=== PATIENT | male | born 1945 | race African-American/Black ===

== ENCOUNTER 2016-11-15 18:29 | Observation (INO) | payer MEDICARE, BC ==
--- NOTE | ~2016-11-15 | EKG ---
PATIENT: KANDY HERMAN UNIT #: [id number] Ventricular Rate: 139 BPM Atrial Rate: 187 BPM QRS Duration: 100 ms Q-T Interval: 342 ms QTC Calculation(Bezet): 520 ms Calculated R [place]: -34 degrees Calculated T [place]: 84 degrees Diagnosis Line: Atrial fibrillation with rapid ventricular Diagnosis Line: response Diagnosis Line: Left axis deviation Diagnosis Line: Voltage criteria for left ventricular hypertrophy Diagnosis Line: Inferior infarct (cited on or before 15-FEB-2011) Diagnosis Line: Abnormal ECG Diagnosis Line: When compared with ECG of 27-JUN-2014 07:21, Diagnosis Line: Atrial fibrillation has replaced Sinus rhythm Diagnosis Line: Vent. rate has increased BY 60 BPM Diagnosis Line: T wave inversion now evident in Lateral leads Diagnosis Line: Confirmed by THEODORA TAO MD ([id number]) on 11/19/2016 Diagnosis Line: 10:39:38 PM INTERPRETING MD: DINH VELASQUEZ
--- NOTE | ~2016-11-15 | EKG ---
PATIENT: KANDY HERMAN UNIT #: [id number] Ventricular Rate: 84 BPM Atrial Rate: 84 BPM P-R Interval: 192 ms QRS Duration: 98 ms Q-T Interval: 420 ms QTC Calculation(Bezet): 496 ms P [place]: 80 degrees Calculated R [place]: -41 degrees Calculated T [place]: 77 degrees Diagnosis Line: Normal sinus rhythm Diagnosis Line: Left axis deviation Diagnosis Line: Voltage criteria for left ventricular hypertrophy Diagnosis Line: Inferior infarct (cited on or before 15-FEB-2011) Diagnosis Line: Abnormal ECG Diagnosis Line: When compared with ECG of 15-NOV-2016 16:27, Diagnosis Line: (unconfirmed) Diagnosis Line: Sinus rhythm has replaced Atrial fibrillation Diagnosis Line: Vent. rate has decreased BY 55 BPM Diagnosis Line: T wave inversion no longer evident in Lateral Diagnosis Line: leads Diagnosis Line: Confirmed by ISHAN ELISE MD ([id number]) on 11/18/2016 Diagnosis Line: 7:16:41 AM INTERPRETING MD: GOSIA VELASQUEZ
--- NOTE | ~2016-11-15 | CR72 ---
[facility] A Service of [facility] RADIOLOGY TEXT RESULTS PATIENT: KANDY HERMAN LOCATION: [facility] [id number] : 47 UNIT #: [id number] AGE: [address]: Ashli Geller MD SEX: M ORDER DR: [id number] [facility] [address] [place], [place] [address] [id number] MR#: [id number] Acc #: [id number] NAME: KANDY HERMAN : 1945 SEX: M STUDY DATE/TIME: 11/15/2016 16:55 UNIT: CED ROOM: [id number] STUDY DESCRIPTION: CR Chest Single View Portable Attending Physician: Ashli Geller M.D. Ordering Physician: Obey Morrison M.D. Primary Care Physician: No Primary Care Physician MEDICAL IMAGING REPORT This report is preliminary unless electronic signature is present EXAM Portable chest x-ray 11/15/2016 HISTORY Chest pain. Short of air, atrial fibrillation, palpitations. Began today. FINDINGS AP radiograph of the chest is presented. Comparison 06/26/2014 at 07:14 hours. Status post median sternotomy and CABG. Stable mild cardiac enlargement. The lungs are well inflated. Mild vascular prominence but the pulmonary vessels remain distinct. Findings may reflect mild underlying vascular congestion. No tan pulmonary edema. Minimal linear atelectasis or scarring at the extreme left lung base laterally. No dense airspace disease, pleural effusion or pneumothorax. No suspicious nodule. Healed granulomatous disease. Visualized upper abdomen shows no acute abnormality. Dictated by... Bay Ren M.D. THIS IS AN ELECTRONICALLY VERIFIED REPORT Bay Ren M.D. at 11/16/2016 8:06 PM TAMMI/tania TD: 11/15/2016 19:42 JOB #: [id number] MEDICAL IMAGING REPORT Page 1 of 1 COPY
--- NOTE | ~2016-11-15 | DS ---
Unit #: [id number] #: [id number] Patient: KANDY HERMAN [id number] [facility]. [place], [place] [address] [id number] MR#: [id number] NAME: KANDY HERMAN ROOM: [facility] Age: 71 Sex: M Admission Date: 11/15/2016 : 1945 Discharge Date: 11/16/2016 Attending Physician: Ashli Geller M.D. DISCHARGE SUMMARY HISTORY AND PHYSICAL/SHORT STAY SUMMARY HISTORY OF PRESENT ILLNESS This is a 71-year-old male previously known to Dr. Sellers with a past medical history of coronary artery disease, status post cardiac catheterization on June 17, 2014, with placement of a stent in the saphenous vein graft to the right coronary artery. The patient previously underwent coronary artery bypass grafting at [facility] after suffering an old myocardial infarction. A 2D echocardiogram was completed on June 15, 2014, which revealed severe LVH and moderate aortic valve calcification. There was impaired LV relaxation with an EF of 60%. Additional past medical history includes hypertension, hyperlipidemia, end-stage renal disease, on hemodialysis, history of cocaine, and noncompliance. Patient went to the hospital and received hemodialysis and did his treatment but then became dizzy. He had some pain in his left anterior chest that lasted up to an hour associated with palpitations. There was no radiation to the neck, jaw, shoulders, or arms. No associated symptoms of diaphoresis, but he was nauseated and slightly short of breath. He states that he was told that he had an irregular heartbeat years ago but was not started on an anticoagulant. In the emergency department, he was found to have new-onset atrial fibrillation with a rapid ventricular response. He was started on a diltiazem drip, and he converted to sinus rhythm. He was admitted overnight for further evaluation. Urine toxicology was positive for cocaine. The patient states that his last use was a couple of days ago. Additional labs revealed a hemoglobin of 10.5 with a hematocrit of 32.1. Creatinine was 3.9 with a BUN of 34. The patient is on hemodialysis three days a week and states that he has been compliant with his treatments. Cardiac enzymes were negative. BNP was mildly elevated at 515. Again, initial EKG revealed atrial fibrillation, but the patient has now converted to sinus rhythm. PAST MEDICAL HISTORY 1. Coronary artery disease, status post cardiac catheterization on June 17, 2014, that revealed distal left main 50%, left circumflex luminal irregularities, obtuse marginal 100%, mid LAD 99% with competitive flow with left internal mammary artery, right coronary artery 100%, saphenous vein graft to the PDA 30-40%, saphenous vein graft to the right coronary artery 70%, saphenous vein graft to the diagonal 40-50%, [place] to the LAD patent, and saphenous vein graft to the OM patent, status post PCI and VeriFlex bare-metal stent in the Unit #: [id number] #: [id number] Patient: KANDY HERMAN saphenous vein graft to the right coronary artery on June 18, 2014. 2. History of coronary artery bypass grafting at [facility] with an old myocardial infarction. 3. A 2D echocardiogram on June 15, 2014, revealed severe LVH, aortic valve moderately calcified, aortic valve bicuspid leaflet, impaired LV relaxation, and ejection fraction 60%. 4. Hypertension. 5. Hyperlipidemia. 6. End-stage renal disease, on hemodialysis. 7. Chronic anemia. 8. History of cocaine use. 9. Noncompliance. 10. History of reported cerebrovascular accident over 15 years ago. Records unavailable. No reported residual. PAST SURGICAL HISTORY 1. Cardiac catheterization. 2. Coronary artery bypass grafting. HOME MEDICATIONS 1. Trazodone 100 mg p.o. every evening. 2. Carvedilol 3.125 mg p.o. b.i.d. 3. Furosemide 40 mg p.o. b.i.d. 4. Atorvastatin 80 mg p.o. at bedtime. 5. Hydralazine 50 mg p.o. t.i.d. 6. Lisinopril 20 mg p.o. daily. 7. Metamucil 1 capsule p.o. daily. 8. Calcium acetate 667 mg p.o. t.i.d. 9. Imdur ER 30 mg p.o. daily. 10. Folic acid/vitamin B 1 tablet p.o. daily. ALLERGIES No known drug allergies. SOCIAL HISTORY The patient lives in a private residence. The patient continues to smoke a half pack of cigarettes per day. He admits to recent cocaine use a couple of days ago. There are no reports of alcohol or illicit drug use. FAMILY HISTORY Noncontributory. REVIEW OF SYSTEMS A 10-point review of systems is negative except for details noted above in the History of Present Illness. PHYSICAL EXAMINATION VITAL SIGNS: Temperature 98.3, pulse 91, and blood pressure 139/83. CONSTITUTIONAL: This is a 71-year-old male in no acute distress. SKIN: Warm and dry. NECK: Supple. No jugular vein distention. No hepatojugular reflux. Normal carotid upstrokes. No carotid bruits auscultated. HEART: S1 and S2. Regular rate and rhythm. No murmurs, rubs, or gallops. LUNGS: Bilateral breath sounds have good air entry throughout all lung augustine. Respirations even and nonlabored. No rales, rhonchi, or wheezes. ABDOMEN: Soft, nontender, and nondistended. Positive bowel sounds auscultated x4 quadrants. No ascites noted. Unit #: [id number] #: [id number] Patient: KANDY HERMAN EXTREMITIES: Bilateral lower extremities have no pretibial pitting edema. DP and PT pulses 2+. Capillary refill less than 3 seconds. DIAGNOSTIC STUDIES LABORATORY: White blood cell count 7, hemoglobin 10.5, hematocrit 32.1, and platelets 241,000. Sodium 135, potassium 4.3, chloride 97, CO2 of 28, BUN 34, creatinine 3.9, glucose 91, AST 15, ALT 11, and alkaline phosphatase 96. Troponin 0.05, 0.05, and 0.34. BNP 515. Urine toxicology positive for cocaine. CARDIOLOGY: EKG reveals normal sinus rhythm, previously atrial fibrillation 139 beats per minute, left axis deviation, left ventricular hypertrophy, poor R wave progression, Q waves in the inferior leads, and QTc prolonged at 520 msec. IMPRESSION 1. New-onset atrial fibrillation with rapid ventricular response, now sinus rhythm. 2. Status post six-vessel coronary artery bypass grafting with percutaneous coronary intervention and stent in the saphenous vein graft to the right coronary artery in 2013. 3. End-stage renal disease, on hemodialysis. 4. Hypertension. 5. Hyperlipidemia. 6. Active tobacco and cocaine abuse. PLAN 1. The patient presented to the hospital with complaints of palpitations accompanied by chest discomfort. He was found to have atrial fibrillation with rapid ventricular response and was started on a diltiazem drip. 2. He successfully converted to sinus rhythm. Her carvedilol has been increased to maintain sinus rhythm. 3. He has been started on Coumadin. He has been instructed to get his INR checked with hemodialysis. 4. Cardiac enzymes are indeterminant, but he is currently asymptomatic and EKG is nonacute. TSH and fasting lipid profile have been obtained. Patient is stable for discharged and has been instructed to follow up with [facility] in one week. 5. He has been instructed to follow up with Nephrology and to keep his hemodialysis as ordered for tomorrow. 6. His first PT-INR will need to be completed on Sunday, November 20, 2016, while on hemodialysis with the results called to [facility]. 7. The patient has been advised to refrain from tobacco abuse and cocaine. 1. Dictated by... Erendira Monzon APRN for [facility] TD: 11/27/2016 18:52 JOB #: [id number] Unit #: [id number] #: [id number] Patient: KANDY HERMAN DISCHARGE SUMMARY Page 1 of 1 X X DISCHARGE SUMMARY
[2016-11-15 17:24] LABS: BASOPHIL# 0.1 X10e3 (0-0.3); BASOPHIL% 1.3 % (0-2.5); EOSINOPHIL# 0.1 X10e3 (0-0.7); EOSINOPHIL% 1.6 % (0.0-7.0); LYMPHOCYTE# 1.4 X10e3 (1.0-3.5); MEAN CELL VOLUME 93.4 FL (83-96); MEAN CORPUSCULAR HEMOGLOBIN 30.2 PG (28-34); MEAN CORPUSCULAR HGB CONC 32.3 g/dL (30-36); MEAN PLATELET VOLUME 8.9 FL (6.5-11.5); MONOCYTE# 0.7 X10e3 (0-1.0); MONOCYTE% 10.8 % (3.0-12.0); NEUTROPHIL% 64.3 % (40-75); PLATELET COUNT 245 X10e3 (140-420); RED BLOOD COUNT 3.96 X10e (3.90-5.60); RED CELL DISTRIBUTION WIDTH 17.7 % (11.0-15.5); WHITE BLOOD COUNT 6.2 X10e3 (4.0-10.5)
[2016-11-15 17:25] LABS: DIFF IND NO
[2016-11-15 17:33] LABS: POC - CKMB 6.4 ng/mL (0.0-7.9); POC - TROPONIN <0.05 ng/mL (<=0.05)
[2016-11-15 17:35] LABS: PARTIAL THROMBOPLASTIN TIME 32.1 SECONDS (23.5-31.3); PROTHROMBIN TIME (PATIENT) 10.6 SECONDS (9.6-11.5)
[2016-11-15 17:42] LABS: ALBUMIN SERUM 3.5 g/dL (3.5-5.0); ALKALINE PHOSPHATASE 96 U/L (32-92); ALT (SGPT) 11 U/L (10-40); AST (SGOT) 15 U/L (10-42); BILIRUBIN, DIRECT <0.1 mg/dL (0.0-0.2); BILIRUBIN,TOTAL 0.1 mg/dL (0.2-2.0); BLOOD UREA NITROGEN 22 mg/dL (9-23); BUN/CREATININE RATIO 8.46; CALCIUM SERUM 9.3 mg/dL (8.4-10.2); CARBON DIOXIDE 32 mmol/L (22-31); CHLORIDE 90 mmol/L (100-111); CREATININE SERUM 2.6 mg/dL (0.6-1.4); GLOM FILT RATE Estimated 27.9 mL/min (>60); GLUCOSE FASTING 130 mg/dL (70-110); POTASSIUM 3.5 mmol/L (3.5-5.1); PROTEIN TOTAL SERUM 9.2 g/dL (6.0-8.3); SODIUM 135 mmol/L (135-145)
[~2016-11-15 18:29] MED LIST: AMLODIPINE BESY10 MG PO; LASIX PO; LISINOPRIL20 MG PO; LOPRESSOR PO; PHOSLO667 MG PO; PRAVASTATIN SOD20 MG PO; RENAVIT TABLET0.8 MG PO
[2016-11-15] MEDS ORDERED: CARVEDILOL6.25 MG PO (18:35)
[2016-11-15] MEDS ORDERED: LIPITOR PO (18:36)
[2016-11-15] MEDS ORDERED: IMDUR-ER30 M1 PO (18:36)
[2016-11-15] MEDS ORDERED: CALCIUM ACETAT667 M2 PO (18:37)
[2016-11-15] MEDS ORDERED: LISINOPRIL20 MG PO (18:37)
[2016-11-15] MEDS ORDERED: HYDRALAZINE HCL50 MG PO (18:37)
[2016-11-15] MEDS ORDERED: LASIX PO (18:37)
[2016-11-15] MEDS ORDERED: METAMUCIL0.52 G PO (18:38)
[2016-11-15] MEDS ORDERED: TRAZODONE HCL100 MG PO (18:38)
[2016-11-15] MEDS ORDERED: RENAVIT TABLET0.8 MG PO (18:39)
[2016-11-15] MEDS ORDERED: CARVEDILOL3.125 MG PO (18:40)
[2016-11-15 19:52] LABS: POC - TROPONIN 0.05 ng/mL (<=0.05)
[2016-11-16 05:43] LABS: HEMATOCRIT 32.1 % (38.0-50.0); HEMOGLOBIN 10.5 gm/dL (13.0-16.0); MEAN CELL VOLUME 92.6 FL (83-96); MEAN CORPUSCULAR HEMOGLOBIN 30.2 PG (28-34); MEAN CORPUSCULAR HGB CONC 32.6 g/dL (30-36); MEAN PLATELET VOLUME 8.5 FL (6.5-11.5); RED BLOOD COUNT 3.47 X10e (3.90-5.60); RED CELL DISTRIBUTION WIDTH 17.9 % (11.0-15.5)
[2016-11-16 06:24] LABS: BUN/CREATININE RATIO 8.71; CALCIUM SERUM 8.9 mg/dL (8.4-10.2); CREATININE SERUM 3.9 mg/dL (0.6-1.4); GLOM FILT RATE Estimated 17.1 mL/min (>60); POTASSIUM 4.3 mmol/L (3.5-5.1)
[2016-11-16 07:32] LABS: AMPHETAMINE NEG (NEG); BARBITURATES NEG (NEG); BENZODIAZEPINES NEG (NEG); COCAINE POS (NEG); MARIJUANA NEG (NEG); OPIATES NEG (NEG); TRICYCLIC ANTIDEPRESSANTS NEG (NEG); U METHADONE NEG (NEG)
[2016-11-16] MEDS ORDERED: COREG6.25 MG PO (12:42)
[2016-11-16] MEDS ORDERED: CHEWABLE ASPIRI81 MG PO (12:46)
[2016-11-16] MEDS ORDERED: COUMADIN5 MG PO (12:48)
[2016-11-16 13:54] LABS: CHOLESTEROL 109 mg/dL (0-200); HDL CHOLESTEROL 51 mg/dL (29-75); LDL CHOLESTEROL 41 mg/dL (-130); LDL/HDL RATIO 1 RATIO (0-4); TRIGLYCERIDES 84 mg/dL (10-160)
== END 2016-11-16 15:02 | disposition home or self-care (01) ==
LOC: CED 18:29 → CEDOF 18:33 → C5B 22:49
PROVIDERS: Emergency Medicine; Internal Medicine Cardiovascular Disease; Nurse Practitioner Family
DX: I48.91 Unspecified atrial fibrillation (principal); R07.9 Chest pain, unspecified; R06.00 Dyspnea, unspecified; I25.10 Atherosclerotic heart disease of native coronary artery without angina pectoris; I25.2 Old myocardial infarction; Z95.1 Presence of aortocoronary bypass graft; I12.0 Hypertensive chronic kidney disease with stage 5 chronic kidney disease or end stage renal disease; N18.6 End stage renal disease; Z99.2 Dependence on renal dialysis; D64.9 Anemia, unspecified; Z91.19 Patient's noncompliance with other medical treatment and regimen
CPT/HCPCS: 36415; 71010; 80048; 80061; 80076; 80307; 82553; 83880; 84443; 84484; 85025; 85027; 85610; 85730; 93005; 96365; 96366; 96372; 96376; 99291; G0378; J1650